=== PATIENT | female | born 1945 | race Caucasian/White ===

== ENCOUNTER → 2024-02-03 | Outpatient (CLI) | payer OTHER ==
[2024-02-03 15:44] LABS: INR 2.9 sec (0.93-1.11); Prothrombin Time 29.2 sec (9.9-11.9)
== END | disposition home or self-care (01) ==
LOC: LABWHC1 11:11
DX: I48.0 Paroxysmal atrial fibrillation (principal); Z95.2 Presence of prosthetic heart valve; Z79.01 Long term (current) use of anticoagulants
CPT/HCPCS: 36415; 85610